=== PATIENT | female | born 1955 ===

== ENCOUNTER 2019-02-10 14:19 | Emergency (ER) | payer OTHER ==
[2019-02-10 14:25] VITALS: BMI 29.2
--- NOTE | 2019-02-10 14:43 | ED PDOC ---
HPI: CCC, URI, Sore Throat Time Seen by Provider: 02/10/19 14:32 Chief Complaint (Nursing): Flu-like Symptoms History Per: Patient Onset/Duration Of Symptoms: Days (2) Current Symptoms Are (Timing): Still Present Location Of Pain: Throat Associated Symptoms: Fever, Sore Throat, Cough Severity: Mild Additional Complaint(s): Sore [id number] fever cough and congestion x 2 days. Denies abd pain, vomiting or diarrhea. Denies SOB. Past Medical History Vital Signs: Last Vital Signs Temp 100.9 F H 02/10/19 14:24 Pulse 119 H 02/10/19 14:24 Resp 18 02/10/19 14:24 BP 101/69 02/10/19 14:24 Pulse Ox 97 02/10/19 14:24 - Medical History PMH: Anxiety, Arthritis, Depression, GERD Denies: Chronic Kidney Disease - Family History Family History: States: Unknown Family Hx - Home Medications Home Medications: Ambulatory Orders Medication Instructions Recorded Fluticasone Propionate [Flonase] 1 spray PRAFUL DAILY 02/13/15 Folic Acid 1 tab PO DAILY 02/13/15 Hydroxychloroquine Sulfate 1 tab PO BID 02/13/15 [Plaquenil] Methotrexate 3 tab PO QWK 02/13/15 Omeprazole 1 tab PO DAILY 02/13/15 Baclofen 5 mg PO BID 11/21/18 Dicyclomine [Bentyl] 10 mg PO QID 11/21/18 Azithromycin [Zithromax] 250 mg PO DAILY #6 tab 02/10/19 Benzonatate [Tessalon Perle] 100 mg PO Q8 #10 capsule 02/10/19 - Allergies Allergies/Adverse Reactions: Allergies Allergy/AdvReac Type Severity Reaction Status Date / Time Penicillins Allergy RASH Verified 02/10/19 14:38 Review of Systems ROS Statement: Except As Marked, All Systems Reviewed And Found Negative Constitutional: Positive for: Fever ENT: Positive for: Throat Pain Respiratory: Positive for: Cough. Negative for: Shortness of Breath Gastrointestinal: Negative for: Abdominal Pain Physical Exam - Reviewed Nursing Documentation Reviewed: Yes Vital Signs Reviewed: Yes - Physical Exam Appears: Positive for: Non-toxic, No Acute Distress Head Exam: Positive for: ATRAUMATIC, NORMAL INSPECTION, NORMOCEPHALIC Skin: Positive for: Normal Color, Warm, DRY Eye Exam: Positive for: EOMI, Normal appearance, PERRL ENT: Positive for: Pharyngeal Erythema, Tonsillar Swelling. Negative for: Tonsillar Exudate Neck: Positive for: Normal, Painless ROM Cardiovascular/Chest: Positive for: Regular Rate, Rhythm Respiratory: Positive for: CNT, Normal Breath Sounds Gastrointestinal/Abdominal: Positive for: Normal Exam, Soft Back: Positive for: Normal Inspection Extremity: Positive for: Normal ROM Neurological/Psych: Positive for: Awake, Alert, Normal Tone - ECG O2 Sat by Pulse Oximetry: 97 Disposition - Clinical Impression Clinical Impression: Upper respiratory infection - Patient ED Disposition Is Patient to be Admitted: No Counseled Patient/Family Regarding: Studies Performed, Diagnosis, Need For Followup, Rx Given - Disposition Referrals: [facility] [Outside] Disposition: Routine/Home Disposition Time: 15:19 Condition: FAIR Prescriptions: Azithromycin [Zithromax] 250 mg PO DAILY #6 tab Benzonatate [Tessalon Perle] 100 mg PO Q8 #10 capsule Instructions: Bacterial Upper Respiratory Infection, Adult Forms: [facility] (Syriac)
--- NOTE | 2019-02-10 15:20 | RAD ---
Date of service: 02/10/2019 HISTORY: cough COMPARISON: 2015 TECHNIQUE: Chest PA and lateral views FINDINGS: LUNGS: Mild interstitial changes noted although a portion of this may be related to overlying soft tissue. There is some mild density seen in the medial right lower lung field on the frontal radiograph and possibly in the retrocardiac region on the lateral radiograph. Finding may reflect small infiltrate or atelectasis. The trachea is midline. PLEURA: No significant pleural effusion identified. No pneumothorax apparent. CARDIOVASCULAR: No aortic atherosclerotic calcification present. Normal cardiac size. No pulmonary vascular congestion. OSSEOUS STRUCTURES: No significant abnormalities. VISUALIZED UPPER ABDOMEN: Normal. OTHER FINDINGS: Hilar regions are normal in outline. Minor degenerative changes are seen in the spine. IMPRESSION: Mild amount of possible density in the medial infrahilar region and medial right lower lung field on the frontal radiograph. Finding may reflect small infiltrate or atelectasis. Mild interstitial change elsewhere.
[2019-02-10 15:42] VITALS: BP 101/52; PULSE 92; RESP 20; O2SAT 99
[2019-02-10 15:46] VITALS: TEMP 100.3
== END 2019-02-10 15:21 | disposition home or self-care (01) ==
LOC: H.ER 14:19
DX: J06.9 Acute upper respiratory infection, unspecified (principal)